=== PATIENT | male | born 1965 | race Two or more races ===

== ENCOUNTER 2021-12-31 10:54 | Emergency (ER) | payer MEDICAID, OTHER ==
[~2021-12-31] VITALS: Ht 165.1 cm; Wt 76.8 kg
[2021-12-31 11:08] VITALS: BP 140/76
[2021-12-31] MEDS ORDERED: SODIUM CHLORIDE 0.9% 1,000 ML IV ONE (11:15)
[2021-12-31 11:40] LABS: Basophils # (auto) 0 10 ^3/uL (0-0.2); Basophils % (auto) 0.6 % (0.0-2.0); Eosinophils # (auto) 0.1 10 ^3/uL (0-0.8); Eosinophils % (auto) 1.3 % (0.0-7.0); Hematocrit 49.2 % (41.0-53.0); Hemoglobin 16.2 g/dL (13.5-17.5); Lymphocytes # (auto) 1.5 10 ^3/uL (0.4-5.4); Lymphocytes % (auto) 25.4 % (10.0-50.0); Mean Corpuscular Hemoglobin 30.2 pg (28.0-32.0); Mean Corpuscular Hgb Conc. 32.8 g/dL (32.0-36.0); Mean Corpuscular Volume 92.1 fL (80.0-100.0); Monocytes # (auto) 0.4 10 ^3/uL (0-1.3); Monocytes % (auto) 7.5 % (0.0-12.0); Neutrophils # (auto) 3.8 10 ^3/uL (1.6-8.6); Neutrophils % (auto) 65.2 % (37.0-80.0); Nucleated Red Blood Cells % 0.1 %; Red Blood Cells 5.35 10^6/uL (4.5-5.90); Red Cell Distribution Width 14.2 % (11.8-14.3); White Blood Cell 5.9 10^3/uL (4.4-10.8)
[2021-12-31 11:59] LABS: Albumin 4.1 g/dL (3.4-5.0); Calcium 9.3 mg/dL (8.5-10.1); Potassium 3.9 mmol/L (3.5-5.1)
[2021-12-31 12:03] LABS: Bilirubin, Total 1.3 mg/dL (0.2-1.0); Total Protein 7.7 g/dL (6.4-8.2)
[2021-12-31] MEDS ORDERED: ONDA-144 PO (13:06)
[2021-12-31] MEDS ORDERED: MECL25CH38 PO (13:17)
== END 2021-12-31 17:15 | disposition home or self-care (01) ==
LOC: ER 10:54
DX: E11.65 Type 2 diabetes mellitus with hyperglycemia (principal); R00.1 Bradycardia, unspecified; I10 Essential (primary) hypertension; E78.5 Hyperlipidemia, unspecified; Z79.899 Other long term (current) drug therapy
CPT/HCPCS: 36415; 36600; 70450; 71045; 80053; 82010; 82805; 84484; 85025; 93005

== ENCOUNTER 2022-09-26 15:54 | Emergency (ER) | payer MEDICAID ==
[~2022-09-26] VITALS: Ht 165.1 cm; Wt 73.8 kg
[~2022-09-26 15:54] MED LIST: MECL25CH38 PO; ONDA-144 PO
[2022-09-26] MEDS ORDERED: HYDROcodone-ACET 10/325MG TAB PO ONE (16:30)
[2022-09-26] MEDS ORDERED: HYDR-4798 PO (19:01)
[2022-09-26] MEDS ORDERED: IBUP800T26 PO (19:01)
[2022-09-26 19:36] VITALS: BP 143/74
== END 2022-09-26 19:45 | disposition home or self-care (01) ==
LOC: ER 15:54
DX: S43.102A Unspecified dislocation of left acromioclavicular joint, initial encounter (principal); S81.852A Open bite, left lower leg, initial encounter; E11.9 Type 2 diabetes mellitus without complications; E78.5 Hyperlipidemia, unspecified; I10 Essential (primary) hypertension; W18.39XA Other fall on same level, initial encounter; W54.0XXA Bitten by dog, initial encounter; Y93.89 Activity, other specified; Y92.89 Other specified places as the place of occurrence of the external cause; Y99.8 Other external cause status
CPT/HCPCS: 73000; 73030